=== PATIENT | male | born 1995 ===

== ENCOUNTER 2019-04-09 14:06 | Emergency (ER) | payer OTHER ==
[2019-04-09] MEDS ORDERED: NS(*) 0.9% 1000 ML BAG 1,000 ML IV ONE ×2 (14:20→15:25)
--- NOTE | 2019-04-09 14:28 | ER Report ---
History and Physical Time Seen By MD: 14:10 Hx. of Stated Complaint: PT'S ROOMMATE TOLD EMS HE SAW PT ON FLOOR SHAKING. EMS STATES PT APPEARED POSTICTAL, COULDN'T ANSWER QUESTIONS, PUPALS DIALATED, BIT TONGUE. PT SEMI ALERT AFTER ARRIVING TO ER. 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. History is limited due to patient's confusion about current events of the day. Per EMS, patient's roommate told them he saw patient on the floor convulsing, and called for help. Upon EMS arrival, patient was confused and asked repetitive questions. In the emergency department, patient believes he woke up feeling fine, does not recall the other events of the day, but does recall eating very tired. He is not sure why he is here but he feels like something must have happened to him. Patient does not believe that he has a prior seizure disorder and does not believe that he has any medical problems or allergies. 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 Patient does not believe he has fallen or had any injury. He denies recent alcohol intake, denies drug use other than having tried marijuana once or twice. Patient denies head injury, difficulty breathing, chest pain, shoulder pain, extremity injury. He does state that the tongue feels somewhat numb. REVIEW OF SYSTEMS: Constitutional: No fever, no chills. Eyes: No discharge. ENT: above Cardiovascular: No chest pain, no palpitations. Respiratory: No cough, no shortness of breath. Gastrointestinal: No abdominal pain, no vomiting. Genitourinary: no difficulty urinating Musculoskeletal: No back pain. Skin: No rashes. Neurological: No headache. Remainder of the 14 system rev: Yes Allergies: Coded Allergies: No Known Drug Allergies (Unverified , 04/09/19) Home Meds No Active Prescriptions or Reported Meds Unable To Obtain Past Medical: Unable to Obtain/Update Reviewed Nurses Notes: Yes Constitutional Vital Sign - Last 24 Hours 04/09/19 04/09/19 04/09/19 04/09/19 14:11 14:12 14:21 14:36 Pulse 140 134 114 Resp 16 23 24 B/P (MAP) 144/99 144/99 (114) Pulse Ox 90 92 91 O2 Delivery Room Air 04/09/19 04/09/19 04/09/19 04/09/19 15:06 15:21 15:36 15:51 Pulse 104 106 97 95 Pulse Ox 93 92 92 94 04/09/19 04/09/19 04/09/19 04/09/19 15:56 15:57 16:00 16:11 Pulse 97 89 B/P (MAP) 129/74 (92) 127/73 (91) Pulse Ox 93 92 04/09/19 04/09/19 04/09/19 04/09/19 16:26 16:30 16:41 16:56 Pulse 103 91 90 B/P (MAP) 121/71 (88) Pulse Ox 93 93 92 04/09/19 04/09/19 04/09/19 04/09/19 17:00 17:11 17:26 17:30 Pulse 97 91 B/P (MAP) 128/70 (89) 151/99 (116) Pulse Ox 93 93 Physical Exam General Appearance: The patient is alert, has no immediate need for airway protection and no signs of toxicity. He is confused as to events Eyes: Pupils equal and round no pallor or injection. Pupils not dilated, no nystagmus, equally reactive ENT, Mouth: Mucous membranes are moist. There is abrasion throughout tip of maryanne c/w maryanne biting. Dentition is intact without laxity Respiratory: There are no retractions, lungs are clear to auscultation. Cardiovascular: tachycardia, no m/r/g Gastrointestinal: Abdomen is soft and non tender, no masses, bowel sounds normal. Neurological: alert, oriented to person, place, date; does not recall events. cn ii-xii intact, no ataxia, nl cerebellar, nl strength, nl sensation Skin: Warm and dry, no rashes. Musculoskeletal: Neck is supple non tender. Extremities are nontender, nonswollen and have full range of motion. DIFFERENTIAL DIAGNOSIS: After history and physical exam differential diagnosis was considered for seizure, trauma, mass, hemorrhage, drug/alcohol intoxication or withdrawal, or other emergent cause or result of seizure Medical Decision Making Data Points Result Diagram: 04/09/19 1410 04/09/19 1605 Laboratory Hematology Test 04/09/19 14:10 04/09/19 14:52 04/09/19 16:05 Red Blood Count 7.70 M/uL (4.00-5.60) Mean Corpuscular Volume 65.0 fL (80.0-96.0) Mean Corpuscular Hemoglobin 20.2 pg (26.0-33.0) Mean Corpuscular Hemoglobin Concent 31.0 g/dL (32.0-36.0) Red Cell Distribution Width 16.8 % (11.5-14.5) Mean Platelet Volume 8.6 fL (7.2-11.1) Neutrophils (%) (Auto) 42.2 % (39.4-72.5) Lymphocytes (%) (Auto) 48.9 % (17.6-49.6) Monocytes (%) (Auto) 6.7 % (4.1-12.4) Eosinophils (%) (Auto) 1.3 % (0.4-6.7) Basophils (%) (Auto) 0.9 % (0.3-1.4) Nucleated RBC Relative Count (auto) 0.1 /100WBC Neutrophils # (Auto) 4.7 K/uL (2.0-7.4) Lymphocytes # (Auto) 5.4 K/uL (1.3-3.6) Monocytes # (Auto) 0.7 K/uL (0.3-1.0) Eosinophils # (Auto) 0.1 K/uL (0.0-0.5) Basophils # (Auto) 0.1 K/uL (0.0-0.1) Nucleated RBC Absolute Count (auto) 0.01 K/uL Peripheral Blood Smear Yes Y/N Thyroid Stimulating Hormone (TSH) 1.96 uIU/ml (0.46-4.68) Salicylates Level < 10 mg/L Salicylate Last Dose Date unk Acetaminophen Level < 10 ug/ml Serum Alcohol < 10 mg/dl Urine Color Yellow Urine Clarity Slightly-cloudy Urine pH 5.0 pH (4.8-9.5) Urine Specific [place] 1.027 Urine Protein 100 mg/dL (NEGATIVE) Urine Glucose (UA) Negative mg/dL (NEGATIVE) Urine Ketones Trace mg/dL (NEGATIVE) Urine Blood Large (NEGATIVE) Urine Nitrite Negative (NEGATIVE) Urine Bilirubin Negative (NEGATIVE) Urine Urobilinogen Negative mg/dL (0.2-1.9) Urine Leukocyte Esterase Negative (NEGATIVE) Urine RBC 1 /HPF (0-2/HPF) Urine WBC 1 /HPF (0-5/HPF) Urine Squamous Epithelial Cells None /LPF (</=FEW) Urine Renal Epithelial Cells Many /LPF (NONE-FEW) Urine Bacteria Negative /HPF (NONE-FEW) Urine Mucus Few /HPF (NONE-FEW) Urine Opiates Screen Negative Urine Barbiturates Screen Negative Ur Tricyclic Antidepressants Screen Negative Urine Phencyclidine Screen Negative Urine Amphetamines Screen Negative Urine Benzodiazepines Screen Negative Urine Cocaine Screen Negative Urine Cannabinoids Screen Negative Sodium Level 139 mmol/L (137-145) Potassium Level 3.9 mmol/L (3.5-5.0) Chloride Level 111 mmol/L (98-107) Carbon Dioxide Level 22 mmol/L (22-30) Blood Urea Nitrogen 18 mg/dl (9-21) Creatinine 1.00 mg/dl (0.66-1.25) Glomerular Filtration Rate Calc > 60.0 Random Glucose 108 mg/dl (75-110) Lactate 1.6 mmol/L (0.7-2.1) Calcium Level 8.0 mg/dl (8.4-10.2) Phosphorus Level 2.1 mg/dl (2.5-4.5) Magnesium Level 2.4 mg/dl (1.7-2.2) Total Bilirubin 0.2 mg/dl (0.2-1.3) Aspartate Amino Transf (AST/SGOT) 31 U/L (0-35) Alanine Aminotransferase (ALT/SGPT) 25 U/L (0-56) Alkaline Phosphatase 48 U/L (0-126) Total Creatine Kinase 748 U/L (55-170) Total Protein 6.3 g/dl (6.3-8.2) Albumin 3.6 g/dl (3.5-5.0) Chemistry Test 04/09/19 14:10 04/09/19 14:52 04/09/19 16:05 White Blood Count 11.1 k/uL (4.5-11.0) Red Blood Count 7.70 M/uL (4.00-5.60) Hemoglobin 15.6 g/dL (14.0-18.0) Hematocrit 50.1 % (42.0-52.0) Mean Corpuscular Volume 65.0 fL (80.0-96.0) Mean Corpuscular Hemoglobin 20.2 pg (26.0-33.0) Mean Corpuscular Hemoglobin Concent 31.0 g/dL (32.0-36.0) Red Cell Distribution Width 16.8 % (11.5-14.5) Platelet Count 334 K/uL (150-450) Mean Platelet Volume 8.6 fL (7.2-11.1) Neutrophils (%) (Auto) 42.2 % (39.4-72.5) Lymphocytes (%) (Auto) 48.9 % (17.6-49.6) Monocytes (%) (Auto) 6.7 % (4.1-12.4) Eosinophils (%) (Auto) 1.3 % (0.4-6.7) Basophils (%) (Auto) 0.9 % (0.3-1.4) Nucleated RBC Relative Count (auto) 0.1 /100WBC Neutrophils # (Auto) 4.7 K/uL (2.0-7.4) Lymphocytes # (Auto) 5.4 K/uL (1.3-3.6) Monocytes # (Auto) 0.7 K/uL (0.3-1.0) Eosinophils # (Auto) 0.1 K/uL (0.0-0.5) Basophils # (Auto) 0.1 K/uL (0.0-0.1) Nucleated RBC Absolute Count (auto) 0.01 K/uL Peripheral Blood Smear Yes Y/N Thyroid Stimulating Hormone (TSH) 1.96 uIU/ml (0.46-4.68) Salicylates Level < 10 mg/L Salicylate Last Dose Date unk Acetaminophen Level < 10 ug/ml Serum Alcohol < 10 mg/dl Urine Color Yellow Urine Clarity Slightly-cloudy Urine pH 5.0 pH (4.8-9.5) Urine Specific [place] 1.027 Urine Protein 100 mg/dL (NEGATIVE) Urine Glucose (UA) Negative mg/dL (NEGATIVE) Urine Ketones Trace mg/dL (NEGATIVE) Urine Blood Large (NEGATIVE) Urine Nitrite Negative (NEGATIVE) Urine Bilirubin Negative (NEGATIVE) Urine Urobilinogen Negative mg/dL (0.2-1.9) Urine Leukocyte Esterase Negative (NEGATIVE) Urine RBC 1 /HPF (0-2/HPF) Urine WBC 1 /HPF (0-5/HPF) Urine Squamous Epithelial Cells None /LPF (</=FEW) Urine Renal Epithelial Cells Many /LPF (NONE-FEW) Urine Bacteria Negative /HPF (NONE-FEW) Urine Mucus Few /HPF (NONE-FEW) Urine Opiates Screen Negative Urine Barbiturates Screen Negative Ur Tricyclic Antidepressants Screen Negative Urine Phencyclidine Screen Negative Urine Amphetamines Screen Negative Urine Benzodiazepines Screen Negative Urine Cocaine Screen Negative Urine Cannabinoids Screen Negative Glomerular Filtration Rate Calc > 60.0 Lactate 1.6 mmol/L (0.7-2.1) Calcium Level 8.0 mg/dl (8.4-10.2) Phosphorus Level 2.1 mg/dl (2.5-4.5) Magnesium Level 2.4 mg/dl (1.7-2.2) Total Bilirubin 0.2 mg/dl (0.2-1.3) Aspartate Amino Transf (AST/SGOT) 31 U/L (0-35) Alanine Aminotransferase (ALT/SGPT) 25 U/L (0-56) Alkaline Phosphatase 48 U/L (0-126) Total Creatine Kinase 748 U/L (55-170) Total Protein 6.3 g/dl (6.3-8.2) Albumin 3.6 g/dl (3.5-5.0) Toxicology Test 04/09/19 14:10 04/09/19 14:52 Salicylates Level < 10 mg/L Salicylate Last Dose Date unk Acetaminophen Level < 10 ug/ml Serum Alcohol < 10 mg/dl Urine Opiates Screen Negative Urine Barbiturates Screen Negative Ur Tricyclic Antidepressants Screen Negative Urine Phencyclidine Screen Negative Urine Amphetamines Screen Negative Urine Benzodiazepines Screen Negative Urine Cocaine Screen Negative Urine Cannabinoids Screen Negative Urinalysis Test 04/09/19 14:52 Urine Color Yellow Urine Clarity Slightly-cloudy Urine pH 5.0 pH (4.8-9.5) Urine Specific [place] 1.027 Urine Protein 100 mg/dL (NEGATIVE) Urine Glucose (UA) Negative mg/dL (NEGATIVE) Urine Ketones Trace mg/dL (NEGATIVE) Urine Blood Large (NEGATIVE) Urine Nitrite Negative (NEGATIVE) Urine Bilirubin Negative (NEGATIVE) Urine Urobilinogen Negative mg/dL (0.2-1.9) Urine Leukocyte Esterase Negative (NEGATIVE) Urine RBC 1 /HPF (0-2/HPF) Urine WBC 1 /HPF (0-5/HPF) Urine Squamous Epithelial Cells None /LPF (</=FEW) Urine Renal Epithelial Cells Many /LPF (NONE-FEW) Urine Bacteria Negative /HPF (NONE-FEW) Urine Mucus Few /HPF (NONE-FEW) EKG/Imaging EKG Interpretation 12 lead EKG: Rhythm: sinus tachycardia Larose: normal QRS: normal ST segments: normal Monitor Interpretation: Sinus Tachycardia ED Course/Re-evaluation ED Course pt presents with first time sz, unk precipitant. He completely returns to [facility] in ED. Per roomate sz lasted approx 10 min. I consulted neurology who does not recommend meds until eeg/fu. I discussed no driving and strict rtn prec with pt and roomate at length. Decision to Disposition Date: April 09, 2019 Decision to Disposition Time: 17:38 Depart Departure Latest Vital Signs Vital Signs Date Time Temp Pulse Resp B/P (MAP) Pulse Ox O2 Delivery O2 Flow Rate FiO2 04/09/19 17:30 151/99 (116) 04/09/19 17:26 91 93 04/09/19 14:36 24 04/09/19 14:11 Room Air Impression: Primary Impression: Seizure Condition: Improved Disposition: HOME OR SELF-CARE Referrals: EVANS PENA MD 1 Week call her office to arrange follow up New Scripts No Active Prescriptions or Reported Meds Patient Instructions: New-Onset Seizure in Adults (ED) Additional Instructions: On the night before your EEG, you may only sleep for 4 hours (either from 8-12 or from 12-4). Make sure your hair is clean and dry. Your EEG will be scheduled for 7am and once started will take less than 30 minutes. [address] may not drive a car/vehicle until cleared by a neurologist and/or a primary doctor, in case you have another seizure. MARY SKAGGS MD April 09, 2019 14:28
--- NOTE | 2019-04-09 14:38 | EKG ---
FACILITY: [facility] PATIENT NAME: JAIME MIGUEL : [id number] MR: [id number] V: [id number] EXAM DATE: ORDERING PHYSICIAN: MARY SKAGGS TECHNOLOGIST: Test Reason : Blood Pressure : / mmHG Vent. Rate : 120 BPM Atrial Rate : 120 BPM P-R Int : 134 ms QRS Dur : 086 ms QT Int : 318 ms P-R-T Axes : 070 051 034 degrees QTc Int : 449 ms Sinus tachycardia Otherwise normal ECG No previous ECGs available Confirmed by RED REGAN ([id number]) on 04/09/2019 9:09:14 PM Referred By: Confirmed By:RED REGAN
[2019-04-09 14:41] LABS: PLATELET COUNT, AUTOMATED 334 K/uL (150-450)
--- NOTE | 2019-04-09 15:01 | RADIOLOGY IMAGING REPORT ---
FACILITY: [facility] [place] PATIENT NAME: Jose G Carvajal : 1995 MR: [id number] V: [id number] EXAM DATE: ORDERING PHYSICIAN: MARY SKAGGS TECHNOLOGIST: [place] [facility] [place] G Carvajal : 1995 Visit/Account:[id number] Date of Sevice: 04/09/2019 Exam type: CHEST SINGLE AP History: dyspnea Comparison: None. Findings: The lungs are free of acute effusions, infiltrates or edema. The cardiac silhouette is normal in siz e. The trachea is in midline. There is no evidence of a pneumothorax or pneumomediastinum. IMPRESSION: 1. No acute cardiopulmonary process is seen Report Dictated By: Rocio Bui MD at 04/09/2019 2:53 PM Report E-Signed By: Rocio Bui MD at 04/09/2019 2:54 PM WSN:[id number]
--- NOTE | 2019-04-09 15:07 | RADIOLOGY IMAGING REPORT ---
[place] [facility] [place] NAME: Jose G Carvajal : 1995 MR: [id number] V: [id number] EXAM DATE: ORDERING PHYSICIAN: MARY SKAGGS TECHNOLOGIST: Location: [facility] Patient: Jose G Carvajal : 1995 Visit/Account:[id number] Date of Sevice: 04/09/2019 Study: CT scan of the brain without intravenous contrast. Indication: Seizure Comparison study:None Technique: Multiple axial images were obtained through the brain without the use of intravenous contr ast. One of the following dose optimization techniques was utilized in the performance of this exam: Autom ated exposure control; adjustment of the mA and/or kV according to the patient's size; or use of an i terative reconstruction technique. Specific details can be referenced in the facility's radiology C T exam operational policy. The examination demonstrates no evidence of acute intracranial hemorrhage. There is no evidence of ex tra-axial collection or hydrocephalus. There is no abnormal density identified within the brain parenchyma. There is no evidence of disruption of the peripheral riley-white junction. The bony structures are unremarkable. IMPRESSION:Unremarkable CT scan of the brain without contrast. Report Dictated By: Aidan Mack at 04/09/2019 2:59 PM Report E-Signed By: Aidan Mack at 04/09/2019 3:02 PM WSN:[email or web address]
[2019-04-09 17:30] VITALS: BP 151/99
== END 2019-04-09 17:59 | disposition home or self-care (01) ==
LOC: ER 14:15
DX: R56.9 Unspecified convulsions (principal); R20.0 Anesthesia of skin; R00.0 Tachycardia, unspecified; R06.00 Dyspnea, unspecified
CPT/HCPCS: 70450; 71045; 80305; 80320; 80329; 81001; 82550; 83605; 83735; 84100; 84443; 85025; 93005; 96360; 99284; J7030; 82040; 82247; 82310; 82374; 82435; 82565; 82947; 84075; 84132; 84155; 84295; 84450; 84460; 84520

== ENCOUNTER → 2019-04-09 | Outpatient (CLI) | payer OTHER | LOC: AMB 13:53 | PROVIDERS: ATTEND Nurse Practitioner | DX: R56.9 Unspecified convulsions (principal); R41.0 Disorientation, unspecified | CPT/HCPCS: A0425; A0427 ==